=== PATIENT | female | born 1955 | race Caucasian/White ===

== ENCOUNTER 2019-06-24 11:21 | Inpatient (IN) | payer MEDICAID ==
[~2019-06-24] VITALS: Ht 162.6 cm; Wt 63.0 kg
[2019-06-24] MEDS ORDERED: ONDANSETRON ODT 4 MG PO PRN (12:00)
[2019-06-24] MEDS ORDERED: POLYETHYLENE GLYCOL 17 GM PACKET PO PRN (12:00)
[2019-06-24] MEDS ORDERED: BISACODYL 10 MG SUPP PR PRN (12:00)
[2019-06-24] MEDS ORDERED: DOCUSATE 100 MG CAPSULE PO PRN (12:00)
[2019-06-24] MEDS ORDERED: DIVA500T4 PO (12:49)
[2019-06-24] MEDS ORDERED: TOPI100T24 PO (12:49)
[2019-06-24] MEDS ORDERED: CLOZ100T PO (12:49)
[2019-06-24 13:44] VITALS: BP 112/67
[2019-06-24 14:37] LABS: MICROSCOPIC NOT IND
[2019-06-24 14:43] LABS: CULTURE INDICATED? NO
[2019-06-24] MEDS: NICOTINE 7 MG/24 HR PATCH.TD24 TD SCH (16:00)
[2019-06-24 16:38] LABS: BASOPHILS # (AUTO) 0.04 x10^3/uL (0-0.1); BASOPHILS % (AUTO) 1 % (0-1); EOSINOPHILS % (AUTO) 1 % (1-7); LYMPHOCYTES # (AUTO) 1.64 x10^3/uL (1-3.4); LYMPHOCYTES % (AUTO) 21 % (22-44); MD NO; MEAN CORPUSCULAR HGB CONC 31.6 g/dL (32.4-35.8); MEAN CORPUSCULAR VOLUME 85.6 fL (80-100); MEAN PLATELET VOLUME 9.6 fL (7.4-10.4); MONOCYTES # (AUTO) 0.72 x10^3/uL (0.2-0.8); MONOCYTES % (AUTO) 9 % (2-9); NEUTROPHILS # (AUTO) 5.17 x10^3/uL (1.8-6.8); NEUTROPHILS % (AUTO) 68 % (42-75); PLATELET COUNT 289 x10^3/uL (130-400); RED CELL DISTRIBUTION WIDTH 14.4 % (9.6-15.2)
[2019-06-24 16:44] LABS: ALANINE AMINOTRANSFERASE 26 U/L (12-78); ALBUMIN 3.3 g/dL (3.4-5.0); ANION GAP 5 mmol/L (5-15); CALCIUM 9.1 mg/dL (8.5-10.1); CHLORIDE 111 mmol/L (98-107)
[2019-06-24 16:53] LABS: ALKALINE PHOSPHATASE 73 U/L (45-117); BILIRUBIN,TOTAL 0.2 mg/dL (0.2-1.0); CHOL/HDL RATIO 4.4; CHOLESTEROL, TOTAL 196 mg/dL (140-239); CREATININE 0.97 mg/dL (0.55-1.02); FREE T4 (FREE THYROXINE) 1.33 ng/dL (0.76-1.46); HDL CHOL % 23 % (28-40); HDL CHOLESTEROL (DIRECT) 45 mg/dL (40-60); LDL CHOLESTEROL,CALCULATED 119 mg/dL (54-169); LDL/HDL RATIO 2.6 (0.5-3.0); TOTAL PROTEIN 7.1 g/dL (6.4-8.2); TRIGLYCERIDES 161 mg/dL (50-200); VLDL CHOLESTEROL 32 mg/dL (0-25)
[2019-06-24 19:06] VITALS: BP 123/76
[2019-06-24] MEDS: TOPIRAMATE 100 MG TABLET PO SCH ×2 (20:04→21:00)
[2019-06-24] MEDS: OLANZAPINE 10 MG TABLET PO SCH ×2 (20:04→21:00)
[2019-06-24] MEDS: DIVALPROEX 500 MG TAB.ER.24H PO SCH ×2 (20:04→21:00)
[2019-06-25 07:24] VITALS: BP 115/69
[2019-06-25] MEDS ORDERED: ZIPRASIDONE 20 MG INJ IM ONE ×2 (08:36→09:00)
[2019-06-25] MEDS: TOPIRAMATE 100 MG TABLET PO SCH ×2 (09:00→21:32)
[2019-06-25] MEDS: OLANZAPINE 10 MG TABLET PO SCH ×2 (09:00→21:33)
[2019-06-25] MEDS: NICOTINE 7 MG/24 HR PATCH.TD24 TD SCH (16:00)
[2019-06-25 19:33] VITALS: BP 122/70
[2019-06-25] MEDS: DIVALPROEX 500 MG TAB.ER.24H PO SCH (21:32)
[2019-06-26] MEDS ORDERED: ZIPRASIDONE 20 MG INJ IM ONE (05:30)
[2019-06-26 07:22] VITALS: BP 104/66
[2019-06-26] MEDS: TOPIRAMATE 100 MG TABLET PO SCH ×2 (08:41→20:40)
[2019-06-26] MEDS: OLANZAPINE 10 MG TABLET PO SCH ×2 (08:41→20:40)
[2019-06-26] MEDS: NICOTINE 7 MG/24 HR PATCH.TD24 TD SCH (16:18)
[2019-06-26 19:20] VITALS: BP 132/77
[2019-06-26] MEDS ORDERED: LORazepam 2 MG/ML, 1ML ONE (20:28)
[2019-06-26] MEDS ORDERED: OLANZAPINE 10 MG INJ IM ONE ×2 (20:28→20:30)
[2019-06-26] MEDS ORDERED: LORazepam 2 MG/ML, 1ML IM ONE (20:30)
[2019-06-26] MEDS: DIVALPROEX 500 MG TAB.ER.24H PO SCH (20:40)
[2019-06-26 21:11] VITALS: BP 125/78
[2019-06-27 07:15] VITALS: BP 129/65
[2019-06-27] MEDS: OLANZAPINE 10 MG TABLET PO SCH ×3 (08:13→21:23)
[2019-06-27] MEDS: TOPIRAMATE 100 MG TABLET PO SCH ×3 (08:13→21:23)
[2019-06-27] MEDS ORDERED: DIPHENHYDRAMINE 50 MG/ML, 1ML IM STA (09:11)
[2019-06-27] MEDS ORDERED: LORazepam 2 MG/ML, 1ML IM STA (09:11)
[2019-06-27] MEDS ORDERED: HALOPERIDOL 5 MG/ML IM STA (09:11)
[2019-06-27] MEDS: NICOTINE 7 MG/24 HR PATCH.TD24 TD SCH (16:00)
[2019-06-27 19:22] VITALS: BP 100/58
[2019-06-27] MEDS: DIVALPROEX 500 MG TAB.ER.24H PO SCH ×2 (20:28→21:23)
[2019-06-28 07:34] VITALS: BP 118/72
[2019-06-28] MEDS: OLANZAPINE 10 MG TABLET PO SCH ×2 (08:08→20:48)
[2019-06-28] MEDS: TOPIRAMATE 100 MG TABLET PO SCH ×2 (08:08→20:48)
[2019-06-28] MEDS: NICOTINE 7 MG/24 HR PATCH.TD24 TD SCH (16:00)
[2019-06-28 19:07] VITALS: BP 108/68
[2019-06-28] MEDS: DIVALPROEX 500 MG TAB.ER.24H PO SCH ×2 (20:48→20:53)
[2019-06-29 07:00] VITALS: BP 110/65
[2019-06-29] MEDS: OLANZAPINE 10 MG TABLET PO SCH ×2 (09:00→21:17)
[2019-06-29] MEDS: TOPIRAMATE 100 MG TABLET PO SCH ×2 (09:00→21:17)
[2019-06-29] MEDS: NICOTINE 7 MG/24 HR PATCH.TD24 TD SCH (16:00)
[2019-06-29 19:33] VITALS: BP 145/75
[2019-06-29] MEDS: DIVALPROEX 500 MG TAB.ER.24H PO SCH (21:16)
[2019-06-30 07:12] VITALS: BP 132/77
[2019-06-30] MEDS: TOPIRAMATE 100 MG TABLET PO SCH ×2 (09:13→20:45)
[2019-06-30] MEDS: OLANZAPINE 10 MG TABLET PO SCH ×2 (09:14→20:45)
[2019-06-30] MEDS: NICOTINE 7 MG/24 HR PATCH.TD24 TD SCH (15:42)
[2019-06-30 19:29] VITALS: BP 117/60
[2019-06-30] MEDS: ACETAMINOPHEN 325 MG TABLET PO PRN (20:44)
[2019-06-30] MEDS: DIVALPROEX 500 MG TAB.ER.24H PO SCH (20:45)
[2019-07-01 07:04] VITALS: BP 124/75
[2019-07-01] MEDS: OLANZAPINE 10 MG TABLET PO SCH ×2 (08:10→20:39)
[2019-07-01] MEDS: TOPIRAMATE 100 MG TABLET PO SCH ×2 (08:10→20:39)
[2019-07-01] MEDS: NICOTINE 7 MG/24 HR PATCH.TD24 TD SCH (15:26)
[2019-07-01 19:52] VITALS: BP 112/72
[2019-07-01] MEDS: ACETAMINOPHEN 325 MG TABLET PO PRN (20:31)
[2019-07-01] MEDS: DIVALPROEX 500 MG TAB.ER.24H PO SCH (20:38)
[2019-07-02] MEDS: OLANZAPINE 10 MG TABLET PO SCH ×2 (09:00→20:03)
[2019-07-02] MEDS: TOPIRAMATE 100 MG TABLET PO SCH ×2 (09:00→21:00)
[2019-07-02] MEDS: NICOTINE 7 MG/24 HR PATCH.TD24 TD SCH (15:11)
[2019-07-02 19:46] VITALS: BP 103/72
[2019-07-02] MEDS: DIVALPROEX 500 MG TAB.ER.24H PO SCH (21:00)
[2019-07-03 06:53] VITALS: BP 123/77
[2019-07-03] MEDS ORDERED: DIPHENHYDRAMINE 50 MG/ML, 1ML IM ONE (09:00)
[2019-07-03] MEDS ORDERED: HALOPERIDOL 5 MG/ML IM STA (09:00)
[2019-07-03] MEDS ORDERED: LORazepam 2 MG/ML, 1ML IM ONE (09:00)
[2019-07-03] MEDS: OLANZAPINE 10 MG TABLET PO SCH ×2 (09:00→21:59)
[2019-07-03] MEDS ORDERED: DIPHENHYDRAMINE 50 MG/ML, 1ML ONE (09:06)
[2019-07-03] MEDS ORDERED: HALOPERIDOL 5 MG/ML ONE (09:06)
[2019-07-03] MEDS ORDERED: LORazepam 2 MG/ML, 1ML ONE (09:06)
[2019-07-03] MEDS: TOPIRAMATE 100 MG TABLET PO SCH ×2 (09:29→22:08)
[2019-07-03] MEDS: NICOTINE 7 MG/24 HR PATCH.TD24 TD SCH (16:00)
[2019-07-03 19:16] VITALS: BP 107/65
[2019-07-03] MEDS: DIVALPROEX 500 MG TAB.ER.24H PO SCH (22:09)
[2019-07-04] MEDS: OLANZAPINE 10 MG TABLET PO SCH ×2 (08:50→21:55)
[2019-07-04] MEDS: TOPIRAMATE 100 MG TABLET PO SCH ×2 (08:50→21:55)
[2019-07-04] MEDS: NICOTINE 7 MG/24 HR PATCH.TD24 TD SCH (17:12)
[2019-07-04 19:33] VITALS: BP 104/68
[2019-07-04] MEDS: DIVALPROEX 500 MG TAB.ER.24H PO SCH (21:55)
[2019-07-05 07:25] VITALS: BP 121/68
[2019-07-05] MEDS: OLANZAPINE 10 MG TABLET PO SCH ×2 (08:40→20:22)
[2019-07-05] MEDS: TOPIRAMATE 100 MG TABLET PO SCH ×2 (08:40→20:22)
[2019-07-05] MEDS: NICOTINE 7 MG/24 HR PATCH.TD24 TD SCH (16:00)
[2019-07-05 19:25] VITALS: BP 106/69
[2019-07-05] MEDS: DIVALPROEX 500 MG TAB.ER.24H PO SCH ×3 (20:22→21:00)
[2019-07-06 07:00] VITALS: BP 113/75
[2019-07-06] MEDS: OLANZAPINE 10 MG TABLET PO SCH ×3 (08:17→22:17)
[2019-07-06] MEDS: TOPIRAMATE 100 MG TABLET PO SCH ×3 (08:17→22:16)
[2019-07-06] MEDS: NICOTINE 7 MG/24 HR PATCH.TD24 TD SCH (15:52)
[2019-07-06 19:31] VITALS: BP 102/60
[2019-07-06] MEDS: DIVALPROEX 500 MG TAB.ER.24H PO SCH ×2 (19:50→22:17)
[2019-07-07 07:20] VITALS: BP 108/64
[2019-07-07] MEDS: OLANZAPINE 10 MG TABLET PO SCH ×2 (09:00→21:00)
[2019-07-07] MEDS: TOPIRAMATE 100 MG TABLET PO SCH ×2 (09:00→21:00)
[2019-07-07] MEDS: NICOTINE 7 MG/24 HR PATCH.TD24 TD SCH (16:00)
[2019-07-07 19:35] VITALS: BP 122/74
[2019-07-07] MEDS: DIVALPROEX 500 MG TAB.ER.24H PO SCH (21:00)
[2019-07-08 07:00] VITALS: BP 118/70
[2019-07-08] MEDS: TOPIRAMATE 100 MG TABLET PO SCH ×2 (08:48→21:00)
[2019-07-08] MEDS: OLANZAPINE 10 MG TABLET PO SCH ×2 (08:48→21:00)
[2019-07-08] MEDS: NICOTINE 7 MG/24 HR PATCH.TD24 TD SCH (16:19)
[2019-07-08 19:06] VITALS: BP 102/57
[2019-07-08] MEDS: DIVALPROEX 500 MG TAB.ER.24H PO SCH (21:00)
[2019-07-09 07:34] VITALS: BP 135/79
[2019-07-09] MEDS: OLANZAPINE 10 MG TABLET PO SCH ×2 (08:45→21:14)
[2019-07-09] MEDS: TOPIRAMATE 100 MG TABLET PO SCH ×2 (08:45→21:13)
[2019-07-09] MEDS: NICOTINE 7 MG/24 HR PATCH.TD24 TD SCH (16:57)
[2019-07-09 19:58] VITALS: BP 110/70
[2019-07-09] MEDS: DIVALPROEX 500 MG TAB.ER.24H PO SCH (21:13)
[2019-07-10] MEDS: OLANZAPINE 10 MG TABLET PO SCH ×2 (09:32→20:47)
[2019-07-10] MEDS: TOPIRAMATE 100 MG TABLET PO SCH ×2 (09:32→20:47)
[2019-07-10] MEDS: NICOTINE 7 MG/24 HR PATCH.TD24 TD SCH (16:51)
[2019-07-10 19:31] VITALS: BP 108/66
[2019-07-10] MEDS: DIVALPROEX 500 MG TAB.ER.24H PO SCH (20:47)
[2019-07-11 07:08] VITALS: BP 104/69
[2019-07-11] MEDS: TOPIRAMATE 100 MG TABLET PO SCH ×2 (08:32→20:22)
[2019-07-11] MEDS: OLANZAPINE 10 MG TABLET PO SCH (08:33)
[2019-07-11] MEDS ORDERED: ARIPIPRAZOLE 400 MG INJ NC IM ONE (15:00)
[2019-07-11] MEDS: ARIPIPRAZOLE 10 MG TABLET PO SCH (15:22)
[2019-07-11] MEDS ORDERED: ARIPIPRAZOLE 5 MG TABLET PO STA (15:29)
[2019-07-11] MEDS: NICOTINE 7 MG/24 HR PATCH.TD24 TD SCH (16:25)
[2019-07-11 19:38] VITALS: BP 104/63
[2019-07-11] MEDS: DIVALPROEX 500 MG TAB.ER.24H PO SCH (20:22)
[2019-07-12 07:03] VITALS: BP 124/76
[2019-07-12] MEDS: TOPIRAMATE 100 MG TABLET PO SCH ×2 (09:00→20:34)
[2019-07-12] MEDS: ARIPIPRAZOLE 10 MG TABLET PO SCH (09:00)
[2019-07-12] MEDS: NICOTINE 7 MG/24 HR PATCH.TD24 TD SCH (16:00)
[2019-07-12 19:23] VITALS: BP 123/67
[2019-07-12] MEDS: DIVALPROEX 500 MG TAB.ER.24H PO SCH (20:38)
[2019-07-13 07:10] VITALS: BP 128/73
[2019-07-13] MEDS: ARIPIPRAZOLE 10 MG TABLET PO SCH (08:32)
[2019-07-13] MEDS: TOPIRAMATE 100 MG TABLET PO SCH ×2 (08:33→20:37)
[2019-07-13] MEDS: NICOTINE 7 MG/24 HR PATCH.TD24 TD SCH (15:27)
[2019-07-13 19:32] VITALS: BP 106/70
[2019-07-13] MEDS: DIVALPROEX 500 MG TAB.ER.24H PO SCH (20:37)
[2019-07-14 07:15] VITALS: BP 105/67
[2019-07-14] MEDS: TOPIRAMATE 100 MG TABLET PO SCH ×2 (09:00→21:25)
[2019-07-14] MEDS: ARIPIPRAZOLE 10 MG TABLET PO SCH (09:01)
[2019-07-14] MEDS: ARIPIPRAZOLE 400 MG INJ NC IM ONE (13:00)
[2019-07-14] MEDS: NICOTINE 7 MG/24 HR PATCH.TD24 TD SCH (15:44)
[2019-07-14 19:35] VITALS: BP 124/68
[2019-07-14] MEDS: DIVALPROEX 500 MG TAB.ER.24H PO SCH (21:16)
[2019-07-15 07:36] VITALS: BP 103/66
[2019-07-15] MEDS: ARIPIPRAZOLE 10 MG TABLET PO SCH (10:37)
[2019-07-15] MEDS: TOPIRAMATE 100 MG TABLET PO SCH ×2 (10:37→20:59)
[2019-07-15] MEDS: NICOTINE 7 MG/24 HR PATCH.TD24 TD SCH (16:00)
[2019-07-15 19:59] VITALS: BP 116/79
[2019-07-15] MEDS: DIVALPROEX 500 MG TAB.ER.24H PO SCH (20:59)
[2019-07-16 07:33] VITALS: BP 94/52
[2019-07-16] MEDS: TOPIRAMATE 100 MG TABLET PO SCH ×2 (08:20→20:07)
[2019-07-16] MEDS: ARIPIPRAZOLE 10 MG TABLET PO SCH (08:21)
[2019-07-16] MEDS: NICOTINE 7 MG/24 HR PATCH.TD24 TD SCH (16:00)
[2019-07-16 19:47] VITALS: BP 120/80
[2019-07-16] MEDS: DIVALPROEX 500 MG TAB.ER.24H PO SCH (20:07)
[2019-07-17 07:15] VITALS: BP 91/50
[2019-07-17] MEDS: ARIPIPRAZOLE 10 MG TABLET PO SCH (08:26)
[2019-07-17] MEDS: TOPIRAMATE 100 MG TABLET PO SCH ×2 (08:27→20:12)
[2019-07-17] MEDS: NICOTINE 7 MG/24 HR PATCH.TD24 TD SCH (15:21)
[2019-07-17 19:44] VITALS: BP 108/66
[2019-07-17] MEDS: DIVALPROEX 500 MG TAB.ER.24H PO SCH (20:12)
[2019-07-18 07:18] VITALS: BP 103/58
[2019-07-18] MEDS: TOPIRAMATE 100 MG TABLET PO SCH ×2 (09:16→20:12)
[2019-07-18] MEDS: ARIPIPRAZOLE 10 MG TABLET PO SCH (09:16)
[2019-07-18] MEDS: NICOTINE 7 MG/24 HR PATCH.TD24 TD SCH (15:50)
[2019-07-18 19:17] VITALS: BP 108/86
[2019-07-18] MEDS: DIVALPROEX 500 MG TAB.ER.24H PO SCH (20:12)
[2019-07-19 07:10] VITALS: BP 102/60
[2019-07-19] MEDS: TOPIRAMATE 100 MG TABLET PO SCH ×2 (09:37→20:05)
[2019-07-19] MEDS: ARIPIPRAZOLE 10 MG TABLET PO SCH (09:54)
[2019-07-19] MEDS: NICOTINE 7 MG/24 HR PATCH.TD24 TD SCH (15:49)
[2019-07-19 19:53] VITALS: BP 100/66
[2019-07-19] MEDS: DIVALPROEX 500 MG TAB.ER.24H PO SCH (20:05)
[2019-07-20 07:35] VITALS: BP 101/64
[2019-07-20] MEDS: TOPIRAMATE 100 MG TABLET PO SCH ×2 (07:55→20:35)
[2019-07-20] MEDS: ARIPIPRAZOLE 10 MG TABLET PO SCH (07:55)
[2019-07-20] MEDS: NICOTINE 7 MG/24 HR PATCH.TD24 TD SCH (16:00)
[2019-07-20 19:28] VITALS: BP 97/61
[2019-07-20] MEDS: DIVALPROEX 500 MG TAB.ER.24H PO SCH (20:35)
[2019-07-21 07:35] VITALS: BP 105/67
[2019-07-21] MEDS: TOPIRAMATE 100 MG TABLET PO SCH ×2 (08:40→20:11)
[2019-07-21] MEDS: ARIPIPRAZOLE 10 MG TABLET PO SCH (08:40)
[2019-07-21] MEDS: NICOTINE 7 MG/24 HR PATCH.TD24 TD SCH (16:00)
[2019-07-21 19:26] VITALS: BP 101/66
[2019-07-21] MEDS: DIVALPROEX 500 MG TAB.ER.24H PO SCH (20:12)
[2019-07-22 07:48] VITALS: BP 105/55
[2019-07-22] MEDS: ARIPIPRAZOLE 10 MG TABLET PO SCH (08:21)
[2019-07-22] MEDS: TOPIRAMATE 100 MG TABLET PO SCH ×2 (08:21→20:07)
[2019-07-22] MEDS: NICOTINE 7 MG/24 HR PATCH.TD24 TD SCH (16:52)
[2019-07-22 19:33] VITALS: BP 120/76
[2019-07-22] MEDS: DIVALPROEX 500 MG TAB.ER.24H PO SCH (20:07)
[2019-07-23 07:04] VITALS: BP 95/63
[2019-07-23] MEDS: ARIPIPRAZOLE 10 MG TABLET PO SCH (09:00)
[2019-07-23] MEDS: TOPIRAMATE 100 MG TABLET PO SCH (09:00)
[2019-07-23] MEDS ORDERED: TOPI100T24 PO (12:30)
[2019-07-23] MEDS ORDERED: ARIP10TA33 PO (12:30)
[2019-07-23] MEDS ORDERED: DIVA500T4 PO (12:30)
[2019-07-23] MEDS ORDERED: NICO-485 TD (12:30)
[2019-07-23] MEDS ORDERED: ARIP400S IM (12:37)
== END 2019-07-23 15:35 | disposition home or self-care (01) | DRG 750 ==
LOC: 3E 12:55
PROVIDERS: ADMIT Psychiatry & Neurology Psychosomatic Medicine; ATTEND Psychiatry & Neurology Psychosomatic Medicine
DX: F25.0 Schizoaffective disorder, bipolar type (principal); Z91.14 Patient's other noncompliance with medication regimen; F17.210 Nicotine dependence, cigarettes, uncomplicated; K59.00 Constipation, unspecified; Z88.5 Allergy status to narcotic agent; Z79.899 Other long term (current) drug therapy
CPT/HCPCS: 36415; 80053; 80061; 81003; 82140; 84439; 84443; 85025; 93005; J3486; 92522-GN; J1200; J1630; J2060

== ENCOUNTER 2019-10-17 17:51 | Emergency (ER) | payer MEDICAID ==
[~2019-10-17] VITALS: Ht 162.6 cm; Wt 70.4 kg
[~2019-10-17 17:51] MED LIST: ARIP10TA33 PO; ARIP400S IM; CLOZ100T PO; DIVA500T4 PO; NICO-485 TD; TOPI100T24 PO
[2019-10-17 17:58] VITALS: BP 118/71
[2019-10-17] MEDS ORDERED: KETOROLAC 30 MG/1 ML IM ONE (18:30)
[2019-10-17] MEDS ORDERED: KETOROLAC 30 MG/1 ML ONE (18:55)
--- NOTE | 2019-10-17 19:03 | NUR ---
PT MEDICATED PER ORDERS.
--- NOTE | 2019-10-17 19:05 | NUR ---
PT HERE WITH C/O NECK/BACK PAIN, STATES NO TRAUMA OR "WEIRD MOVEMENT, IT CAME OUT OF NOWHERE."
--- NOTE | 2019-10-17 19:47 | NUR ---
Patient/Caregiver given discharge instructions and they have confirmed that they understand the instructions. Patient ambulatory with steady gait.
== END 2019-10-17 19:57 | disposition home or self-care (01) ==
LOC: ED 19:50
DX: M47.812 Spondylosis without myelopathy or radiculopathy, cervical region (principal); F17.200 Nicotine dependence, unspecified, uncomplicated; Z72.9 Problem related to lifestyle, unspecified; W01.0XXA Fall on same level from slipping, tripping and stumbling without subsequent striking against object, initial encounter; Y93.89 Activity, other specified; Y92.89 Other specified places as the place of occurrence of the external cause; Y99.8 Other external cause status
CPT/HCPCS: 72125; 96372; 99284; J1885

== ENCOUNTER 2021-05-01 05:11 | Emergency (ER) | payer MEDICARE, MEDICAID ==
[~2021-05-01] VITALS: Ht 162.6 cm; Wt 72.0 kg
--- NOTE | 2021-05-01 05:25 | NUR ---
PT BIBA FROM HOME FOR PSYCHOSIS PER EMS, PT HORRIBLE HISTORIAN AND DOESNT KNOW WHY SHE IS HERE BUT SHE IS THE ONE THAT CALLED EMS AND STATED SHE WANTED TO COME TO [facility], PT IS A/OX4 BUT RAMBLES ABOUT RANDOM THINGS, THIS PT ASKED IF SHE USES RECREATIONAL DRUGS AND PT BECAME ANGRY AND YELLED "NO" BUT THEN RIGHT BACK TO LAYING DOWN AND ANSWERING OTHER QUESTIONS APPROPRIATELY, EMS STATED THAT PT PARANOID SCHIZOFRENIC, PT VERY RESTLESS LAYING IN BED, EMS STATED THAT WHEN THEY PICKED PT UP FROM HER HOME SHE WANTED [facility]
[2021-05-01] MEDS ORDERED: LORazepam 1MG TABLET PO ONE (05:30)
[2021-05-01] MEDS ORDERED: LORazepam 1MG TABLET ONE (06:25)
[2021-05-01 06:33] LABS: BASOPHILS % (AUTO) 1 % (0-1); EOSINOPHILS % (AUTO) 1 % (1-7); LYMPHOCYTES % (AUTO) 24 % (22-44); MEAN CORPUSCULAR HEMOGLOBIN 28.2 pg (27.0-34.8); MEAN CORPUSCULAR HGB CONC 33.7 g/dL (32.4-35.8); MEAN PLATELET VOLUME 9.3 fL (7.4-10.4); MONOCYTES % (AUTO) 8 % (2-9); NEUTROPHILS % (AUTO) 67 % (42-75); PLATELET COUNT 193 x10^3/uL (130-400); RED BLOOD COUNT 4.93 x10^6/uL (3.82-5.3); RED CELL DISTRIBUTION WIDTH 14.9 % (9.6-15.2)
[2021-05-01 06:44] LABS: ALBUMIN 3.3 g/dL (3.4-5.0); ANION GAP 5 mmol/L (5-15); CALCIUM 9.9 mg/dL (8.5-10.1); CHLORIDE 106 mmol/L (98-107); CREATININE 0.76 mg/dL (0.55-1.02)
[2021-05-01 06:46] LABS: ALANINE AMINOTRANSFERASE 25 U/L (12-78); ALKALINE PHOSPHATASE 90 U/L (45-117); BILIRUBIN,TOTAL 0.3 mg/dL (0.2-1.0); TOTAL PROTEIN 7.1 g/dL (6.4-8.2)
--- NOTE | 2021-05-01 06:55 | NUR ---
REPORT GIVEN TO GRACIELA PANTOJA
--- NOTE | 2021-05-01 07:22 | NUR ---
PT DESATTING TO 88% WHEN SLEEPING. PT SATS UP TO 91% WHEN AWAKE. ATTEMPTED TO PLACE O2 VIA NC BUT PT REFUSING AT THIS TIME.
--- NOTE | 2021-05-01 08:21 | NUR ---
PT AWAKE, NAD. VSS. PT NOT ASNWERING DIRECT QUESTIONS AND ASKING WHEN SHE CAN GO. PT A&O TO PERSON AND PLACE, NOT ANSWERING OTHER QUESTIONS.
--- NOTE | 2021-05-01 09:08 | NUR ---
BREAKFAST TRAY DELIVERED. VSS. [place]. PT IN ED [facility] WITH RAILS UP, CALL LIGHT WITHIN REACH.
--- NOTE | 2021-05-01 10:45 | NUR ---
PT RESTLESS ON ED GURNEY. PT REQUESTING TO GO HOME [facility] THEN REQUESTED TO GO TO [facility] FOR EVAL. PY WOULD NOT SAY WHY SHE WANTED TO GO TO [facility]. VSS.
--- NOTE | 2021-05-01 13:07 | NUR ---
PSYCH TIRE CENTER MANAGER BEDSIDE
--- NOTE | 2021-05-01 13:56 | NUR ---
PT INSTRUCTED ON HOW TO GIVE A CLEAN URINE SAMPLE. PT NOT WANTING TO GIVE URINE SAMPLE AT THIS TIME.
[2021-05-01] MEDS ORDERED: HALOPERIDOL 2 MG/ML ORAL SOL PO PRN (14:00)
[2021-05-01] MEDS ORDERED: ARIPIPRAZOLE 10 MG TABLET PO ONE (14:00)
[2021-05-01] MEDS ORDERED: HALOPERIDOL 5 MG/ML IM PRN (14:00)
--- NOTE | 2021-05-01 14:48 | NUR ---
PT MOVED TO ROOM 3. PT NOW RESTING IN BED WITH EYES CLOSED. PT PLACED IN HOSPITAL BED.
--- NOTE | 2021-05-01 15:20 | NUR ---
pt would not sit still for EKG. Will try again later.
--- NOTE | 2021-05-01 16:46 | NUR ---
pt given crackers and peanut butter at request
[2021-05-01 17:07] LABS: MICROSCOPIC NOT IND
[2021-05-01 17:26] LABS: AMPHETAMINE SCREEN, URINE Negative (Negative); BARBITURATE SCREEN, URINE Negative (Negative); BENZODIAZEPINE SCREEN, URINE Negative (Negative); CANNABINOID SCREEN, URINE Negative (Negative); COCAINE SCREEN, URINE Negative (Negative); METHADONE SCREEN, URINE Negative (Negative); OPIATE SCREEN, URINE Negative (Negative)
--- NOTE | 2021-05-01 18:30 | NUR ---
MEAL TRAY GIVEN TO PT
[2021-05-01 19:21] VITALS: BP 118/65
--- NOTE | 2021-05-01 19:22 | NUR ---
ASSUMED CARE OF PATIENT FROM ERUM PANTOJA. PATIENT SITTING IN BED COMFORTABLY, BELONGINGS SECURED, ROOM SECURED, VSS, A/OX4, INDEPENDENT. PATIENT REQUESTING WATER AT THIS TIME. PATIENT BROUGHT WATER REQUESTED
--- NOTE | 2021-05-01 20:34 | NUR ---
PACKET FAXED TO [facility]. PT DENIED BY [facility] PSYCH PROVIDER.
--- NOTE | 2021-05-01 20:34 | NUR ---
PATIENT LYING DOWN IN BED COMFORTABLY SLEEPING. NO CURRENT NEEDS AT THIS TIME
--- NOTE | 2021-05-01 21:03 | NUR ---
PATIENT LYING DOWN IN BED COMFORTABLY SLEEPING. NO CURRENT NEEDS AT THIS TIME
--- NOTE | 2021-05-01 21:23 | NUR ---
SERG PANTOJA CALLED FOR REPORT FROM [facility]. SERG PANTOJA TO CALL BACK IF DOCTOR IS ACCEPTING ON THEIR END
--- NOTE | 2021-05-01 21:35 | NUR ---
[facility] accepts. Accepting doctor is Dr. Oconnor. via [facility]
--- NOTE | 2021-05-01 22:05 | NUR ---
PATIENT LYING DOWN IN BED COMFORTABLY SLEEPING. NO CURRENT NEEDS AT THIS TIME
--- NOTE | 2021-05-01 23:05 | NUR ---
PATIENT LYING DOWN IN BED COMFORTABLY SLEEPING. NO CURRENT NEEDS AT THIS TIME
== END 2021-05-01 23:36 ==
LOC: ED 15:02
DX: F29 Unspecified psychosis not due to a substance or known physiological condition (principal); R94.31 Abnormal electrocardiogram [ECG] [EKG]; Z91.14 Patient's other noncompliance with medication regimen; F17.200 Nicotine dependence, unspecified, uncomplicated
CPT/HCPCS: 36415; 80053; 80299; 80307; 80320; 80329; 81003; 85025; 93005; 99285; G0480